=== PATIENT | male | born 1950 | race Caucasian/White ===

== ENCOUNTER → 2018-03-27 | Outpatient (CLI) | payer MEDICARE ==
[~2018-03-27] MED LIST: ECASA81 PO; LISI-515 PO; SIMV20TA PO
[2018-03-27 08:37] LABS: AUTOMATED NEUTROPHIL # 2.5 TH/MM3 (1.8-7.7); BASOPHIL % 0.3 % (0.0-2.0); EOSINOPHIL # 0.2 TH/MM3 (0-0.4); EOSINOPHIL % 4.7 % (0.0-4.0); HEMOGLOBIN 14.2 GM/DL (13.0-17.0); LYMPH % 36.7 % (9.0-44.0); LYMPHOCYTE # 1.9 TH/MM3 (1.0-4.8); MEAN CELL VOLUME 84.5 FL (80.0-100.0); MEAN CORPUSCULAR HEMOGLOBIN 28.6 PG (27.0-34.0); MEAN CORPUSCULAR HGB CONC 33.8 % (32.0-36.0); MONO % 9.4 % (0.0-8.0); MONOCYTE # 0.5 TH/MM3 (0-0.9); NEUT % 48.9 % (16.0-70.0); PLATELET COUNT 181 TH/MM3 (150-450); RED BLOOD COUNT 4.97 MIL/MM3 (4.50-5.90); RED CELL DISTRIBUTION WIDTH 13.1 % (11.6-17.2); WHITE BLOOD COUNT 5.1 TH/MM3 (4.0-11.0)
[2018-03-27 08:43] LABS: INTERNATIONAL NORMALIZED RATIO 0.9 RATIO; PROTHROMBIN TIME - PATIENT 9.5 SEC (9.8-11.6)
[2018-03-27 08:47] LABS: BILIRUBIN, URINE NEG (NEG); BLOOD, URINE NEG (NEG); GLUCOSE,URINE NEG (NEG); KETONE, URINE NEG (NEG); NITRITE,URINE NEG (NEG); URINE COLOR Straw (YELLW/STRAW); URINE LEUKOCYTE ESTERASE NEG (NEG)
[2018-03-27 09:04] LABS: CREATININE 1.22 MG/DL (0.60-1.30)
--- NOTE | 2018-03-27 10:10 | RADRPT ---
EXAM DATE: 03/27/2018 9:20 AM EDT AGE/SEX: 68 years / Male INDICATIONS: Evaluate for pneumonia, pneumothorax or communicable disease. Preop chest for left knee surgery on 04/11/18 CLINICAL DATA: This is the patient's initial encounter. Patient reports that signs and symptoms have been present for 1 day and indicates a pain score of 0/10. MEDICAL/SURGICAL HISTORY: Cardiovascular disease. melanoma CABG. COMPARISON: No prior exams available for comparison. FINDINGS: PA and lateral views of the chest demonstrate the lungs to be symmetrically aerated without evidence of mass, infiltrate or effusion. The cardiomediastinal contours are unremarkable. Sternotomy wires. CONCLUSION: No acute disease Electronically signed by: Pop Gonzalez MD 03/27/2018 10:09 AM EDT
--- NOTE | 2018-03-27 19:14 | EKG ---
Date Performed: 03/27/2018 Time Performed: 08:26:32 PTAGE: 68 years EKG: SINUS BRADYCARDIA INCOMPLETE RIGHT BUNDLE BRANCH BLOCK BORDERLINE ECG NO PREVIOUS TRACING DOCTOR: William Cole Interpretating Date/Time 03/27/2018 19:10:20
== END ==
LOC: CPRE 07:57
PROVIDERS: ATTEND Orthopaedic Surgery
DX: Z01.810 Encounter for preprocedural cardiovascular examination (principal); Z01.811 Encounter for preprocedural respiratory examination; Z01.812 Encounter for preprocedural laboratory examination; S83.222D Peripheral tear of medial meniscus, current injury, left knee, subsequent encounter; X58.XXXD Exposure to other specified factors, subsequent encounter; R94.31 Abnormal electrocardiogram [ECG] [EKG]
CPT/HCPCS: 36415; 71046; 80048; 81001; 85025; 85610; 93005

== ENCOUNTER 2018-08-12 05:07 | Inpatient (IN) ==
--- NOTE | 2018-08-07 12:24 | MH ---
cc: Eric Badillo MD DATE OF ADMISSION: 08/12/2018 ADMITTING DIAGNOSIS: Osteoarthritis, left knee. HISTORY: The patient is a 68-year-old white male who has had a rather lengthy history of pain involving his left knee that extended back to 1991, at which time he did sustain a stress injury of the left knee secondary to a snow skiing accident. For a number of years thereafter, he did reasonably well while conforming to conservative management, but gradually began to note pain about his knee, for which he had undergone orthopedic evaluation in 2016 in the [place], [place] area. He was diagnosed as having an arthritic condition and was advised total knee arthroplasty as treatment of choice. He elected to continue with conservative management but noted lingering soreness about the knee while conforming to ambulatory activities and taking ibuprofen 800 mg. He underwent further orthopedic evaluation in 12/2017 and at that time was advised to continue conservative management. He was later seen by the undersigned physician and was subsequently diagnosed as having a medial and lateral meniscus tear of the left knee with associated osteoarthritis as related to findings of an MRI scan. He expressed his desire to continue with a less aggressive approach to treatment, for which he was admitted to the hospital in 03/2018, and at that time underwent arthroscopic surgery with associated debridement of the knee. The patient experienced some minimal improvement postoperatively but elected to continue with conservative management, including initiating a physical therapy program that unfortunately aggravated his knee symptoms. He returned to the office in followup disposition, noting continued pain about his left knee that was beginning to influence all ambulatory activities. His more current x-ray studies revealed obvious degenerative change with [id number] apposition about the medial compartment, associated with a varus deformity of almost 10 degrees magnitude. Findings and treatment options were again reviewed. The pros and cons of continued conservative management versus operative intervention involving total knee replacement were outlined with emphasis being made that the decision to proceed with surgery would be left entirely to the patient's discretion. Bill readily admitted that he had progressed to that point in time where he was ready to proceed accordingly, and in compliance with his wishes he was scheduled for admission at this time in order that the above be accomplished. 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 Medical illnesses include hypertension and elevated cholesterol. CURRENT MEDICATIONS: 1. Lisinopril 10 mg daily. 2. Simvastatin 20 mg daily. 3. Aspirin 81 mg tablet daily. ALLERGIES: THE PATIENT DENIES ANY KNOWN DRUG ALLERGIES. REVIEW OF SYSTEMS: Wears glasses. Denies headaches, seizure or syncope. No sinus congestion or epistaxis. Auditory acuity intact. No tinnitus. No bleeding gums or dysphagia. Denies cough, shortness of breath, upper respiratory infection, pneumonia, or tuberculosis. No angina. He is medically managed for hypertension and status post cardiac bypass surgery. Appetite good. Bowel movements regular. No hepatitis, gallbladder disease or ulcers. Positive history of hemorrhoids. No urinary tract infection. Positive history of kidney stones with spontaneous passage. No fractures, no prostate disease. No psychiatric illness. Remaining review of systems is unremarkable and noncontributory. FAMILY HISTORY: 49 years. is 66 years of age, in good health. Two daughters described as being in good health. Family history is positive for hypertension, pancreatic cancer, and alcoholism. SOCIAL HISTORY: The patient has been retired for more than 3 years, having worked as a dentist. He denies active use of tobacco and ethanol. PHYSICAL EXAMINATION: VITAL SIGNS: Height 6 feet 3 inches, weight 293 pounds. GENERAL: An alert, oriented, and responsive 68-year-old white male who sits quietly upon the examination table with no obvious distress. HEAD, EARS, EYES, NOSE AND THROAT: Pupils are equal, round and reactive to light. Extraocular movements full. Sclerae are clear. External nares clear. External auditory canals clear. Dental intact. Mucous membranes pink and moist. Pharynx clear. NECK: Supple. Active range of motion with no appreciable pain. Carotid pulse is palpable bilaterally. Trachea midline. Thyroid without thyroid enlargement. LUNGS: Clear to auscultation and percussion. No CVA tenderness. No discomfort throughout the dorsolumbar spine. HEART: Regular rate and rhythm. No murmur or gallop. ABDOMEN: Soft, nontender, bowel sounds present. RECTAL: Per primary care physician. EXTREMITIES: Left knee, mild varus deformity with slight medial joint line tenderness. Apprehension and compression sign negative. No obvious swelling or effusion. Limited mobility towards the 110-120 degree range of motion with mild discomfort elicited. No collateral ligamentous laxity. Cielo test and drawer sign negative. Pivot shift and Wilman sign positive for medial compartment pain. Straight leg raising unremarkable at 80 degrees. Satisfactory mobility of the left hip with no associated pain. Mild antalgic gait. NEUROLOGIC: Cranial nerves 2-12 grossly intact. IMPRESSION: Osteoarthritis left knee. PLAN: Left total knee arthroplasty. The nature of the planned surgical procedure, the potential complications and risks associated, the expectations of surgery, and the consent form have been thoroughly reviewed with the patient prior to his admission to the hospital. Bill has indicated his full understanding regarding all of the above and given consent to proceed with treatment as outlined. Medical evaluation and clearance for surgery completed by his primary care physician, Dr. Kailyn Saravia. MD JUANY Hong/antonio , 11:55 AM , 12:07 PM
[2018-08-12] MEDS ORDERED: Chlorhexidine Gluconate 2% 1 Pack (2 Cloths) TOPICAL ONE (05:34)
[2018-08-12] MEDS ORDERED: Metoprolol Tartrate 25 MG Tablet PO ONE (05:34)
[2018-08-12] MEDS ORDERED: Bupivacaine 0.5% Inj 50 ML MDV Vial ONE (05:57)
[2018-08-12] MEDS ORDERED: ceFAZolin 2 GM Premix Inj 2 GM/50 ML PIGGYBACK IV.SIG SCH (06:00)
[2018-08-12] MEDS ORDERED: Sodium Chlor 0.9% Inj 500 ML IV.SIG SCH (06:00)
[2018-08-12] MEDS ORDERED: fentaNYL Citrate Inj 250 MCG/5 ML Ampul ONE (06:22)
[2018-08-12] MEDS ORDERED: fentaNYL Citrate Inj 100 MCG/2 ML Ampul ONE (06:22)
[2018-08-12] MEDS ORDERED: Famotidine PF Inj 20 MG/2 ML Vial ONE (06:22)
[2018-08-12] MEDS ORDERED: Ketamine Inj 50 MG/5 ML Syringe IV.PUSH ONE (06:29)
[2018-08-12] MEDS ORDERED: Lidocaine PF 1% Inj 5 ML Syringe INFILTRATN ONE (06:38)
[2018-08-12] MEDS ORDERED: Glycopyrrolate Inj 1 MG/5 ML Syringe IV.PUSH ONE (06:38)
[2018-08-12] MEDS ORDERED: Neostigmine Inj 5 MG/5 ML Syringe IV.PUSH ONE (06:38)
[2018-08-12] MEDS ORDERED: Sodium Chlor 0.9% Inj 73.07 ML, Ropivacaine 0.5% PF Inj 24.63 ML, Ketorolac Inj 30 MG, ... P-ARTICULR SCH ×5 (07:00)
[2018-08-12] MEDS ORDERED: Tranexamic Acid Inj 1,000 MG in Sodium Chlor 0.9% Inj 100 ML IV.SIG SCH ×2 (07:00→10:00)
[2018-08-12] MEDS ORDERED: ceFAZolin Inj 500 MG Vial IRRIGATION ONE ×2 (08:15→12:30)
[2018-08-12] MEDS ORDERED: Naloxone Inj 0.4 MG/ML Vial IV.PUSH PRN (09:35)
[2018-08-12] MEDS ORDERED: Aluminum/Magnesium/Simethacone Susp 30 ML UDC PO PRN (09:35)
[2018-08-12] MEDS ORDERED: Tranexamic Acid Inj 1,000 MG in Sodium Chlor 0.9% Inj 100 ML IV.SIG ONE (09:35)
[2018-08-12] MEDS ORDERED: Bisacodyl 10 MG Supp RECTAL PRN (09:35)
[2018-08-12] MEDS ORDERED: Morphine Inj 4 MG/ML Vial IV.PUSH PRN (09:35)
[2018-08-12] MEDS ORDERED: Post-op Orders (for Pharmacy) OTHER STA (09:35)
[2018-08-12] MEDS ORDERED: Acetaminophen 325 MG Tablet PO PRN (09:35)
[2018-08-12] MEDS ORDERED: *morphine SULFATE 10 MG/ML PERIprocedure ONLY ONE (09:37)
--- NOTE | 2018-08-12 09:40 | P.DCO ---
- Diagnosis (1) Degenerative joint disease of knee, left Status: Acute - Physical Therapy Order: Evaluate and treat, Improve ambulation, Strength and gait training - Home Health Nursing Order: Wound care and dressing changes, Nursing assessment with vital signs - Home Health Aide Order: To assist in: Bathing and personal care, incident response coordinator and meal prep - Communication And Outreach Manager Order: To evaluate: Living conditions/environment, Support services Order: To provide: Long range planning, Community services - Case Management Consult Yes - Certification I have seen patient Eric Aquino on 08/12/18. My clinical findings support the need for the requested home health care services because: Limited ability to care for self, High risk of falls I certify that my clinical findings support that this patient is homebound because: Post-op weakness, Unsteady gait/balance, Unsafe to leave home unassisted (1) Degenerative joint disease of knee, left Qualifiers: Osteoarthritis type: primary Qualified Code(s): M17.12 - Unilateral primary osteoarthritis, left knee
[2018-08-12] MEDS ORDERED: Morphine Inj 30 MG/30 ML PCA.VIAL PCA ONE (09:48)
--- NOTE | 2018-08-12 09:59 | MP ---
cc: Eric Badillo MD DATE OF OPERATION: 08/12/2018 PREOPERATIVE DIAGNOSIS: Osteoarthritis of the left knee. POSTOPERATIVE DIAGNOSIS: Osteoarthritis of the left knee. PROCEDURE: Left total knee arthroplasty. SURGEON: Eric Badillo MD ANESTHESIA: General endotracheal. INDICATIONS: A 68-year-old white male with a lengthy history of left knee pain extending back to 1991, at which time the patient sustained a stress injury of his knee secondary to snow skiing accident. For a number of years thereafter, he did reasonably well while conforming to conservative management, but gradually began to note increasing pain about the left knee for which he had undergone previous orthopedic evaluation in 2015 in the [place], [place] area. He was diagnosed as having an arthritic condition and was advised to consider total knee arthroplasty as treatment of choice. He elected to continue with conservative management, but noting lingering soreness about his knee while conforming to ambulatory activities and taking ibuprofen 800 mg. Further orthopedic evaluation was completed in December of this year, at which time the patient elected to continue with conservative management. He was later seen by the undersigned physician and subsequently diagnosed as having a medial and lateral meniscus tear of the left knee associated with osteoarthritis as related to findings of an MRI scan. He expresses desire to continue with a less aggressive approach to treatment for which he was admitted to the hospital in March and at that time underwent arthroscopic surgery with associated debridement about the knee. The patient experienced minimal improvement postoperatively, but elected to continue with conservative management including physical therapy intervention. Unfortunately, treatment tended to aggravate his knee symptoms and he returned to the office in followup disposition, reporting ongoing pain about his left knee that was beginning to interfere with all ambulatory activities. His current x-ray studies revealed obvious degenerative change with [id number] apposition about the medial compartment, associated with a varus deformity of almost 10 degrees magnitude. Findings and treatment options were again reviewed. The pros and cons of continuing with conservative management versus operative intervention involving total knee arthroplasty were outlined. Emphasis was made regarding the fact that the decision to proceed with surgery would be left entirely to the patient's discretion. The patient was readily admitted that he had progressed to that point in time where he was ready to proceed accordingly and in compliance with his wishes, he was scheduled for admission at this time in order that the above be accomplished. FORMAT: Following induction of satisfactory general anesthesia and endotracheal intubation as completed per the Department of Anesthesia, a tourniquet was established around the proximal portion of the left lower extremity. The extremity proper was isolated with a U-drape, thereafter being prepped with Betadine solution and draped into a sterile field in the routine manner. Prior to initiation of the actual procedure, the standard timeout protocol was completed. All parameters were appropriately addressed and confirmed by operating room personnel. The extremity was elevated for approximately 1 minute and the tourniquet thus inflated to 250 mmHg pressure. A sharp skin incision was initiated midline over the anterior aspect of the knee and developed through underlying subcutaneous tissue with hemostasis maintained by electrocautery. By deepening dissection, the anterior capsule was exposed. The medial capsulotomy completed and the patella subluxed in a lateral orientation. Examination of the joint space revealed significant degenerative changes throughout the medial compartment, extending into the patellofemoral region. There was complete erosion of articular cartilage and underlying subchondral bone exposed. The articular surface of the patella was resected with power saw. The 3-holed guide was utilized for establishing post-holes. The anterior cruciate ligament as well as medial and lateral meniscus structures were sharply excised. A centering hole was placed in the distal aspect of the femur, allowing positioning of the intramedullary guide. The distal femoral cutting jig was attached and the distal femur resected. AP measurement noted 75 mm sizing to be appropriate. The matching cutting block was positioned. Anterior, posterior and chamfer cuts were completed. The tibial plateau was thereafter subluxed in an anterior orientation, allowing positioning of the extramedullary guide. The tibial plateau was resected and measured with 83 mm sizing determined to be satisfactory. Trial reduction followed utilizing a 75-mm anatomic femoral component, an 83 mm tibial base with both 10 mm and 12 mm bearing inserts trialed. The 12 mm thickness was determined to be the more favorable fit. The knee was readily brought to full extension. There was no laxity with varus and valgus stress at both 0 and 90 degrees flexed posture. Orientation was confirmed as appropriate with measurement of the pelvic guide through the mechanical access of the knee. A trial reduction followed utilizing a 34 mm standard 3 post-patellar button. Once again good tracking was demonstrated with no tendency towards subluxation. All trial components being removed, the remaining portion of the proximal tibia was prepared for insertion of the permanent component. The joint space was thoroughly lavaged with pulsating antibiotic solution, hemostasis maintained by electrocautery. An autogenous bone plug was inserted into the distal femoral guide hole and thereafter a preparation of 5 Biomet bone cement was utilized in inserting knee components in a sequential fashion, which included an 83 mm fixed cruciate tibial plate to which a 12 mm Vanguard tibial bearing insert was secured with locking frances. The 75 mm Vanguard femoral component was firmly seated onto the distal femur, excess cement being removed. The knee was brought to full extension and thereafter, the 6-[id number]-13-mm standard patellar button was attached and maintained in place with patellar clamp while cement hardening was completed. Final range of motion assessment noted good tracking stability throughout the knee. Irrigation was repeated with hemostasis maintained. SureTrans drain tubes were inserted through superior stab wounds. The capsule was repaired with 0-Vicryl suture. The remaining portion of the wound was closed in layers in the routine manner, skin margins being reapproximated with a running subcuticular 3-0 Vicryl suture over which Steri-Strips were applied. Xeroform gauze and a bulky dry sterile dressing placed. Tourniquet deflated after 60 minutes of tourniquet time. The patient thereafter transferred to a hospital bed and returned to the recovery room in satisfactory condition, having tolerated his operative procedure well. Estimated blood loss was approximately 200 mL as determined per anesthesia. All implants were of the Bi[employer] estimator and drafter supervisor. MD JUANY Hong/christina , 09:28 AM , 09:40 AM
[2018-08-12] MEDS: Morphine Inj 30 MG/30 ML PCA.VIAL PCA PRN (10:00)
--- NOTE | 2018-08-12 10:20 | XR ---
EXAM DATE: 08/12/2018 10:15 AM EST AGE/SEX: 68 years / Male INDICATIONS: Post op left knee CLINICAL DATA: This is the patient's initial encounter. Patient reports that signs and symptoms have been present for 1 day and indicates a pain score of Nonresponsive. MEDICAL/SURGICAL HISTORY: None. . left knee replaced COMPARISON: No prior exams available for comparison. FINDINGS: The patient is post left knee arthroplasty. The orthopedic hardware is in excellent position. CONCLUSION: Orthopedic hardware in excellent position. No evidence of complication. Electronically signed by: Everardo Nascimento MD 08/12/2018 10:18 AM EST
[2018-08-12] MEDS: ceFAZolin 1 GM Premix Inj 1 GM/50 ML FROZ.PIGGY IV.SIG SCH ×2 (12:59→18:11)
--- NOTE | 2018-08-12 14:43 | P.CON ---
History of Present Illness Service: [facility] Consult date: 08/12/18 Requesting Physician: Eric Badillo Reason for Consult: Post Op Medical Management Primary Care Provider: virgilio varghese Chief Complaint: osteoarthritis, knee pain History of Present Illness: 68-year-old male with history of HTN, HLD, CAD, 3-vessel CABG, advanced osteoarthritis of the left knee who has failed multiple attempts at conservative management, now admitted to [facility] for left total knee arthroplasty done by Dr. Badillo on 08/12/18. Hospitalists consulted for medical management. Patient is seen after surgery with his at bedside. He reports currently his left knee pain is well controlled. He denies any acute medical complaints including no fever/chills, headache, chest pain, shortness of breath, abdominal or urinary complaints. He reports one bowel movement prior to coming the hospital this morning. He took his morning medications this morning. He has not yet attempted oral intake. No acute concerns at this time. Review of Systems All other systems reviewed negative except as stated in HPI PMFSH - History History Provided By: Patient - Medical History Medical History: Medical History (Last Updated 08/12/18 @ 16:09 by Sejal Mejia) CAD (coronary artery disease) Hyperlipidemia Nephrolithiasis Arthritis Hx of melanoma of skin Hypertension Personal history of kidney stones Wears glasses - Surgical History Surgical History: Surgical History (Last Updated 08/12/18 @ 16:09 by Sejal Mejia) History of coronary artery bypass graft x 3 S/P skin cancer resection History of arthroscopy of left knee History of heart bypass surgery Hx of decompressive lumbar laminectomy Hx of tonsillectomy - Family History Family History: Family History (Last Updated 08/12/18 @ 16:09 by Sejal Mejia) Mother Cancer Father Cancer - Social History I have reviewed the patient's Social History: Yes - Tobacco History Second Hand Smoke Exposure: Yes Tobacco Use In Past 30 Days: No Smoking Status: Never smoker - Alcohol History How Often Do You Have a Drink Containing Alcohol: Never - Substance Use History Substance History: No History of Abuse - Travel History Recent Travel in the [place] Within the Last 8 Weeks: No Recent Travel Out of the Country Within the Last 8 Weeks: No Medications and Allergies Active Medications: Active Medications Acetaminophen (Tylenol) 650 mg PO Q6H PRN PRN Reason: FEVER > 102 F Hydrocodone Bitart/Acetaminophen ([place]ler 5/325) 1 tab PO Q4H PRN PRN Reason: PAIN LESS THAN 5 ON SCALE Hydrocodone Bitart/Acetaminophen ([place]ler 5/325) 2 tab PO Q6H PRN PRN Reason: PAIN SCALE 5 TO 10 Al Hydrox/Mg Hydrox/Simethicone (Mag-Al Plus Susp Liq) 30 ml PO Q6H PRN PRN Reason: INDIGESTION Al Hydroxide/Mg Hydroxide (Milk Of Magnesia Liq) 30 ml PO BID PRN PRN Reason: Mild Constipation Aspirin (Aspirin) 325 mg PO BID [facility] Bisacodyl (Dulcolax Supp) 10 mg RECTAL DAILY PRN PRN Reason: SEVERE CONSITIPATION Cefazolin Sodium/Dextrose (Ancef 2 Gm Premix Inj) 2 gm in 50 mls @ 100 mls/hr IV.SIG DECORATING INSPECTOR [facility] Stop: 08/16/18 05:59 Last Infusion: 08/12/18 07:57 Dose: Infused Tranexamic Acid 1,000 mg/ (Sodium Chloride) 110 mls @ 200 mls/hr IV.SIG ONCE [facility] Stop: 08/13/18 06:59 Last Infusion: 08/12/18 07:57 Dose: Infused Lactated Ringer's (Lr 1000 Ml Inj) 1,000 mls @ 30 mls/hr IV.SIG .Q24H [facility] Stop: 08/13/18 05:44 Last Admin: 08/12/18 05:45 Dose: 30 mls/hr Sodium Chloride (Ns Inj) 500 mls @ 30 mls/hr IV.SIG .Q10H [facility] Last Admin: 08/12/18 05:59 Dose: Not Given Lactated Ringer's (Lr 1000 Ml Inj) 1,000 mls @ 80 mls/hr IV.CONT .[id number] [facility] Last Admin: 08/12/18 10:00 Dose: 80 mls/hr Morphine Sulfate (Morphine Inj) 30 mg in 30 mls @ 0 mls/hr [employer]PER[employer]OR UNSCH PRN PRN Reason: prn pain Last Admin: 08/12/18 10:00 Dose: 0 mls/hr Cefazolin Sodium/Dextrose (Ancef 1 Gm Premix Inj) 1 gm in 50 mls @ 100 mls/hr IV.SIG Q6H [facility] Stop: 08/13/18 01:29 Last Admin: 08/12/18 12:59 Dose: 100 mls/hr Lactulose (Lactulose Liq) 30 ml PO DAILY PRN PRN Reason: SEVERE CONSITIPATION Lisinopril (Prinivil) 10 mg PO BID [facility] Miscellaneous Information ([facility] Information) 0 each OTHER UNSCH PRN PRN Reason: SEE DOSE INSTRUCTIONS Miscellaneous Information ([facility] Information) 0 each OTHER UNSCH X1 [facility] Stop: 08/13/18 09:34 Miscellaneous Information ([facility] Information) 1 each OTHER UNSCH PRN PRN Reason: SEE LABEL COMMENTS Stop: 08/13/18 09:18 Morphine Sulfate (Morphine Inj) 2 mg IV.PUSH Q3H PRN PRN Reason: BREAKTHROUGH PAIN Naloxone HCl (Narcan Inj) 0.4 mg IV.PUSH PRN PRN PRN Reason: Resp rate < 10 Ondansetron HCl (Zofran Inj) 4 mg IV.PUSH Q6H PRN PRN Reason: NAUSEA OR VOMITING Povidone Iodine (Betadine 7.5% Scrub) 1 applicatio TOPICAL ONCE [facility] Stop: 08/16/18 05:59 Last Admin: 08/12/18 05:45 Dose: 1 applicatio Pravastatin Sodium (Pravachol) 40 mg PO DAILY@1800 [facility] Senna/Docusate Sodium (Celeste-Colace) 1 tab PO BID [facility] Sennosides (Senokot) 17.2 mg PO BID PRN PRN Reason: Moderate Constipation Sodium Chloride (Ns Flush) 2 ml IV.FLUSH BID [facility] Sodium Chloride (Ns Flush) 2 ml IV.FLUSH PRN PRN PRN Reason: FLUSH AFTER USING IV ACCESS Zolpidem Tartrate (Ambien) 5 mg PO HS PRN PRN Reason: INSOMNIA Allergies Allergy/AdvReac Type Severity Reaction Status Date / Time No Known Allergies Allergy Verified 08/12/18 05:43 Home Medications Medication Instructions Recorded Confirmed Type aspirin [Aspir-81] 81 mg PO DAILY 03/27/18 08/12/18 History lisinopril 10 mg PO BID 03/27/18 08/12/18 History simvastatin 20 mg PO QPM 03/27/18 08/12/18 History Physical Exam Vital signs: Vital Signs 08/12/18 05:45 08/12/18 05:46 08/12/18 09:19 Temperature 98.5 F 97.1 F L Pulse Rate 70 78 90 Respiratory Rate 20 16 Blood Pressure 150/90 H 142/78 H Pulse Oximetry 98 98 97 08/12/18 09:30 08/12/18 09:45 08/12/18 10:00 Temperature Pulse Rate 84 80 84 Respiratory Rate 16 16 16 Blood Pressure 131/60 134/70 136/72 Pulse Oximetry 98 96 96 08/12/18 10:15 08/12/18 10:30 08/12/18 12:00 Temperature 97.2 F L Pulse Rate 86 90 92 H Respiratory Rate 16 16 18 Blood Pressure 137/73 136/72 158/92 H Pulse Oximetry 98 98 96 Intake & Output 08/11/18 08/12/18 08/12/18 18:59 06:59 18:59 Intake Total 2200 / 2200 Output Total 200 / 200 Balance 1999 Weight 133.4 kg 133.4 kg Intake: IV 260 / 260 Cyklokapron Inj 1,000 MG In NS 110 / 110 Inj 100 ML @ 200 mls/hr IV.SIG ONCE [facility] Rx#:[id number] Ancef 2 GM Premix Inj 2 gm In 50 / 50 50 ml @ 100 mls/hr IV.SIG DECORATING INSPECTOR [facility] Rx#:[id number] Ancef Inj 1,000 MG In NS Inj 100 / 100 100 ML @ 100 mls/hr IV.SIG ONCE ONE Rx#:[id number] Anesthesia Amount 1939 / 1939 Output: Estimated Blood Loss 200 / 200 Other: Weight On Admission 133.4 kg Narrative: GENERAL: Well-nourished, well-developed very pleasant male patient in [facility]. SKIN: Warm and dry. No rash. HEENT: Normocephalic. Atraumatic. Pupils equal and round. Mucous membranes pink and moist. NECK: Supple. Trachea midline. CARDIOVASCULAR: Regular rate and rhythm. No murmur appreciated. RESPIRATORY: No accessory muscle use. Clear to auscultation. Breath sounds equal bilaterally. GASTROINTESTINAL: Abdomen soft, non-tender, nondistended. Normoactive bowel sounds x4. MUSCULOSKELETAL: No obvious deformities. Extremities without clubbing, cyanosis , or edema. LLE in surgical dressing/JANESSA, CDI, with Hemovac in place. NEUROLOGICAL: Awake and alert. No obvious cranial nerve deficits. Motor grossly within normal limits. Moving all extremities spontaneously. Normal speech. PSYCHIATRIC: Appropriate mood and affect; insight and judgment normal. Results - Labs Labs: Laboratory Results - last 24 hr 08/12/18 05:44 Blood Type O Positive Blood Type Recheck Required Antibody Screen Negative - Imaging Impressions Knee X-Ray 08/12/18 09:30 CONCLUSION: Orthopedic hardware in excellent position. No evidence of complication. Assessment and Plan - Plan 68-year-old male with history of HTN, HLD, CAD, 3-vessel CABG, advanced osteoarthritis of the left knee who has failed multiple attempts at conservative management, now admitted to [facility] for left total knee arthroplasty done by Dr. Badillo on 08/12/18. Hospitalists consulted for medical management. Severe Osteoarthritis s/p Left TKA: surgery done 08/[address] Badillo -continue management per ortho -pain control with [place] prn and IV morphine prn -bowel regimen -on aspirin 325mg bid per ortho -continue PT, progress to full weightbearing -check post op H&H HTN/HLD/CAD/CABG: chronic, stable, no complaints of chest pain -continue lisinopril, statin, aspirin -monitor BP, adjust antihypertensives as needed All other medical conditions stable. Continue supportive treatment. DVT Prophylaxis: on aspirin 325mg bid per orthopedics
[2018-08-12] MEDS: Aspirin 325 MG Tablet PO SCH (20:41)
[2018-08-12] MEDS: Lisinopril 20 MG Tablet PO SCH (20:41)
[2018-08-12] MEDS: Senna/Docusate Sodium 8.6/50 MG Tablet PO SCH (20:42)
[2018-08-12] MEDS ORDERED: Zolpidem Tartrate 5 MG Tablet PO PRN (21:00)
[2018-08-13] MEDS: ceFAZolin 1 GM Premix Inj 1 GM/50 ML FROZ.PIGGY IV.SIG SCH (00:22)
[2018-08-13 05:15] LABS: Hemoglobin 11.5 gm/dL (13.0-17.0)
[2018-08-13] MEDS: Morphine Inj 30 MG/30 ML PCA.VIAL PCA PRN (05:43)
--- NOTE | 2018-08-13 08:56 | P.PN ---
Subjective Interval history: Follow up for medical management of HTN, HLD, CAD, in a patient s/p Left TKA on 08/12. The patient is seen doing some exercises in bedside chair. He denies any medical complaints. He states his pain is fairly well controlled. Tolerating oral intake. No nausea/vomiting. Last BM yesterday prior to surgery. Hoping to go home tomorrow. Physical Exam Vital signs: Vital Signs 08/12/18 09:19 08/12/18 09:30 08/12/18 09:45 Temperature 97.1 F L Pulse Rate 90 84 80 Respiratory Rate 16 16 16 Blood Pressure 142/78 H 131/60 134/70 Pulse Oximetry 97 98 96 08/12/18 10:00 08/12/18 10:15 08/12/18 10:30 Temperature Pulse Rate 84 86 90 Respiratory Rate 16 16 16 Blood Pressure 136/72 137/73 136/72 Pulse Oximetry 96 98 98 08/12/18 12:00 08/12/18 15:59 08/12/18 20:00 Temperature 97.2 F L 97.7 F 97.9 F Pulse Rate 92 H 93 H 77 Respiratory Rate 18 18 18 Blood Pressure 158/92 H 132/86 124/70 Pulse Oximetry 96 95 94 L 08/13/18 00:00 08/13/18 01:53 08/13/18 04:00 Temperature 97.3 F L 97.2 F L Pulse Rate 68 73 Respiratory Rate 17 18 17 Blood Pressure 117/61 123/72 Pulse Oximetry 95 94 L 08/13/18 06:49 Temperature Pulse Rate Respiratory Rate 18 Blood Pressure Pulse Oximetry Intake & Output 08/12/18 08/13/18 08/13/18 18:59 06:59 18:59 Intake Total 2750 / 2750 1050 / 1050 Output Total 425 / 425 1300 / 1300 Balance 2325 / 2325 -250 / -250 Weight 133.4 kg Intake: IV 310 / 310 1050 / 1050 LR 1000 mL Inj 1,000 ML @ 80 1000 / 1000 mls/hr IV.CONT .[id number] [facility] Rx# :[id number] Cyklokapron Inj 1,000 MG In NS 110 / 110 Inj 100 ML @ 200 mls/hr IV.SIG ONCE [facility] Rx#:[id number] Ancef 1 GM Premix Inj 1 gm In 50 / 50 50 / 50 50 ml @ 100 mls/hr IV.SIG Q6H [facility] Rx#:[id number] Ancef 2 GM Premix Inj 2 gm In 50 / 50 50 ml @ 100 mls/hr IV.SIG KNITTING INSPECTOR [facility] Rx#:[id number] Ancef Inj 1,000 MG In NS Inj 100 / 100 100 ML @ 100 mls/hr IV.SIG ONCE ONE Rx#:[id number] Oral 500 / 500 Anesthesia Amount 1940 / 1940 Output: Urine 225 / 225 900 / 900 Estimated Blood Loss 200 / 200 Wound Drainage 400 / 400 # 1 Left Knee 400 / 400 Other: # Voids 1 2 Date of Last Bowel Movement 08/12/18 Narrative: GENERAL: Well-nourished, well-developed very pleasant male patient in [facility]. SKIN: Warm and dry. HEENT: Normocephalic. Atraumatic. Pupils equal and round. Mucous membranes pink and moist. CARDIOVASCULAR: Regular rate and rhythm. No murmur appreciated. RESPIRATORY: No accessory muscle use. Clear to auscultation. Breath sounds equal bilaterally. GASTROINTESTINAL: Abdomen soft, non-tender, nondistended. Normoactive bowel sounds x4. MUSCULOSKELETAL: No obvious deformities. Extremities without clubbing, cyanosis , or edema. LLE in surgical dressing/JANESSA, CDI, with Hemovac in place. NEUROLOGICAL: Awake and alert. No obvious cranial nerve deficits. Moving all extremities spontaneously. Normal speech. PSYCHIATRIC: Appropriate mood and affect; insight and judgment normal. Results - Labs CBC & Chem 7: 08/13/18 04:22 Laboratory Results - last 24 hr 08/13/18 04:22 Hgb 11.5 L Hct 34.0 L - Imaging Impressions Knee X-Ray 08/12/18 09:30 CONCLUSION: Orthopedic hardware in excellent position. No evidence of complication. - Procedures left total knee arthroplasty done by Dr. Badillo on 08/12/18. Assessment and Plan - Plan 68-year-old male with history of HTN, HLD, CAD, 3-vessel CABG, advanced osteoarthritis of the left knee who has failed multiple attempts at conservative management, now admitted to [facility] for left total knee arthroplasty done by Dr. Badillo on 08/12/18. Hospitalists consulted for medical management. Severe Osteoarthritis s/p Left TKA: surgery done 08/[address] Badillo -continue management per ortho -pain control with [place] prn and IV morphine prn -bowel regimen -on aspirin 325mg bid per ortho -continue PT, progress to full weightbearing -post op H&H 11.5/34.0, stable HTN/HLD/CAD/CABG: chronic, stable, no complaints of chest pain -continue lisinopril, statin, aspirin -monitor BP, adjust antihypertensives as needed -vital signs reviewed and stable All other chronic medical conditions stable. Continue supportive treatment. DVT Prophylaxis: on aspirin 325mg bid per orthopedics
[2018-08-13] MEDS: Aspirin 325 MG Tablet PO SCH ×2 (10:31→20:40)
[2018-08-13] MEDS: Lisinopril 20 MG Tablet PO SCH ×2 (10:31→20:39)
[2018-08-13] MEDS: Senna/Docusate Sodium 8.6/50 MG Tablet PO SCH ×2 (10:32→20:40)
[2018-08-14 01:46] VITALS: RESP 17
--- NOTE | 2018-08-14 07:41 | MD ---
cc: Eric Badillo MD, Tina MD DATE OF DISCHARGE: ADMITTING DIAGNOSIS: Osteoarthritis of the left knee. DISCHARGE DIAGNOSIS: Osteoarthritis of the left knee. HISTORY: This is a 68-year-old white male with a lengthy history of left knee pain extending back to 1991, at which time he had sustained a stress injury as a result of a snow skiing accident for a number of years. Thereafter, he conformed to conservative management, becoming progressively more symptomatic with pain. He had undergone previous orthopedic evaluation in [address] in [address] [facility] and at that time was diagnosed as having an arthritic condition and advised to consider total knee arthroplasty. He elected to continue with conservative management noting lingering soreness about his left knee while taking ibuprofen 800 mg. Further orthopedic evaluation was completed in December of this year, at which time the patient elected to continue with conservative management. He was subsequently seen by the undersigned physician and later diagnosed as having a medial and lateral meniscus tear of the left knee associated with osteoarthritis, based upon findings of MRI scan. The patient elected to proceed with arthroscopic surgery, which was accomplished in March, but unfortunately did not provide him with the long-term benefit that he was anticipating. He did undergo a course of physical therapy intervention that unfortunately aggravated his knee symptoms and when he returned to the office in followup disposition, he described ongoing pain, generalized about the left knee that was beginning to influence all ambulatory activities. His current x-ray studies revealed obvious degenerative change with [id number] apposition about the medial compartment associated with a varus deformity at least 10 degrees magnitude. Findings and treatment options were reviewed. At that time, the patient elected to proceed with total knee arthroplasty as the treatment of choice for long-term benefit. In compliance with his wishes, he was scheduled for admission at this time in order that the above be accomplished. For additional details with regard to this history, interested parties would be directed to the full documentation of his admitting history and physical report. His physical examination at the time of admission revealed a varus deformity about the left knee with medial joint line tenderness. Apprehension and compression sign negative. No appreciable swelling or effusion. Limited mobility in the 110-120 degree range of motion with discomfort elicited. No collateral ligamentous laxity. Cielo test and drawer sign negative. Pivot shift and Wilman sign positive for medial compartment pain. Straight leg raising unremarkable at 80 degrees. Satisfactory mobility of the left hip with no associated pain. Mild antalgic gait. HOSPITAL COURSE: Prior to admission to the hospital, the patient had undergone medical evaluation and clearance for surgery as completed by his primary care physician, Dr. Kailyn Simon. He was taken to the operating room on 08/12/2018 and on that date underwent left total knee arthroplasty completed in an uncomplicated manner. The patient was noted to have tolerated his operative procedure well. His postoperative course was stable thereafter. Hemoglobin and hematocrit assessment postoperatively was 11.5 and 34.0 respectively. The patient was progressively immobilized under the guidance of physical therapy being permitted weightbearing to tolerance about the left lower extremity. Followup examination of the surgical wound noted to be intact, healing favorably with no evidence of infection. Medical followup per the hospitalist service. DVT prophylaxis initiated. Neurourologist consult to assist with discharge planning. The patient had indicated his desire to be discharged home and continue his rehabilitation on an outpatient basis. Plans were finalized in this regard and pending medical clearance, he was scheduled for discharge on the second postoperative day, at which time he was making favorable progress with regard to his initial rehabilitation program. He was scheduled to be seen in office followup in approximately 4 weeks. CONDITION AT THE TIME OF DISCHARGE: Stable. PROGNOSIS: Favorable. DISCHARGE MEDICATIONS: Included: 1. Hydrocodone 5/325 mg, #30. 2. Aspirin 325 mg 1 tab twice daily for 3 weeks, #40. Eric Badillo MD NBS/sv , 06:47 AM , 06:56 AM
[2018-08-14] MEDS: Lisinopril 20 MG Tablet PO SCH (09:26)
[2018-08-14] MEDS: Senna/Docusate Sodium 8.6/50 MG Tablet PO SCH (09:26)
[2018-08-14 09:43] VITALS: BP 121/62; PULSE 66; TEMP 97.1; O2SAT 97
[2018-08-14] MEDS: Aspirin 325 MG Tablet PO SCH (09:49)
== END 2018-08-14 10:42 | disposition home health service (06) ==
LOC: HSDI 05:07 → N06 11:45
PROVIDERS: ADMIT Orthopaedic Surgery; ATTEND Orthopaedic Surgery